=== PATIENT | male | born 1945 | race Caucasian/White ===

== ENCOUNTER 2018-02-25 10:47 | Inpatient (IN) | payer MEDICARE, OTHER ==
[~2018-02-25] VITALS: Ht 177.8 cm; Wt 60.8 kg
[2018-02-25] VITALS (21 sets, daily range): BP systolic 83–113; BP diastolic 50–67; BMI 19.3
[~2018-02-25 10:47] MED LIST: ASPIRIN81 MG PO; ATIVAN0.5 MG PO; DILAUDID2 MG PO; GLUCOPHAGE500 MG PO; HYDROCODONE-APA1 TAB PO; HYDROXYZINE HCL50 MG PO; HYTRIN5 MG; KAOPECTATE525 MG/15 PO; MELATONIN 3 MG1 TAB PO; MIRAPEX0.25 MG PO; MUCINEX600 MG PO; MYSOLINE250 MG PO; NIASPAN500 MG PO; OXYBUTYNIN CHLOR5 MG PO; PHENERGAN25 M1 PO; PRILOSEC20 MG PO; PROZAC40 MG PO; ROBAXIN-750750 MG PO; VITAMIN B-121000 MCG PO; ZANTAC150 MG PO
[2018-02-25 12:36] LABS: BASOPHILS 0.1 % (0-2); EOSINOPHILS 0 % (0-7); HEMATOCRIT 39.2 % (42.0-54.0); HEMOGLOBIN 12.9 g/dL (13.5-17.5); IMMATURE GRANULOCYTES 0.3 % (0-5); MCHC 32.9 g/dL (31.0-37.0); MCV 88.1 fL (80.0-100.0); MEAN PLATELET VOLUME 10.8 fL (7.4-10.4); MONOCYTES 9.8 % (2-11); NEUTROPHILS 83.8 % (40-80); RBC 4.45 10x6/uL (4.20-6.10); RDW 14.9 % (11.5-14.5); WBC 10.7 10x3/uL (4.8-10.8)
[2018-02-25 12:38] LABS: PLATELET COUNT 147 10x3/uL (130-400)
[2018-02-25 12:53] LABS: APPEARANCE HAZY (CLEAR); BILIRUBIN NEGATIVE (NEGATIVE); COLOR DK YELLOW (YELLOW); GLUCOSE NEGATIVE (NEGATIVE); KETONE SMALL mg/dL (NEGATIVE); NITRITE NEGATIVE (NEGATIVE); PROTEIN NEGATIVE (NEGATIVE); SPECIFIC GRAVITY 1.025 (1.005-1.020)
[2018-02-25 12:56] LABS: BACTERIA FEW /hpf (NONE SEEN); EPITHELIAL CELLS 0-5 /hpf (0-5); HYALINE CAST 0-5 /lpf (NONE SEEN); MUCUS <1+ /lpf (NONE SEEN); RED CELLS - URINE RARE /hpf (0-5); WAXY CAST RARE /lpf (NONE SEEN); WHITE CELLS - URINE 0-5 /hpf (0-5)
[2018-02-25 13:10] LABS: ALBUMIN 2.8 g/dL (3.4-5.0); ALKALINE PHOSPHATASE 82 U/L (46-116); ALT (SGPT) 24 U/L (10-68); BILIRUBIN - TOTAL 0.83 mg/dL (0.2-1.3); CALCIUM 9.3 mg/dL (8.5-10.1); CARBON DIOXIDE 24.4 mmol/L (21.0-32.0); CHLORIDE - SERUM 102 mmol/L (98-107); CREATININE - SERUM 1.7 mg/dL (0.6-1.3); POTASSIUM - SERUM 4.9 mmol/L (3.5-5.1); PROTEIN - SERUM 6.1 g/dL (6.4-8.2); SODIUM 139 mmol/L (136-145); UREA NITROGEN 48 mg/dL (7-18); eGFR NON AFRICAN AMERICAN 42 mL/min (90-120)
[2018-02-25 13:13] LABS: CALC OSMOLALITY 294 mosm/kg (275-300); GLUCOSE 177 mg/dL (74-106); TROPONIN-I < 0.017 ng/mL (0.000-0.060)
[2018-02-25] MEDS ORDERED: NORVASC5 MG PO (21:44)
[2018-02-25] MEDS ORDERED: LIPITOR80 MG PO (21:53)
[2018-02-25] MEDS ORDERED: ARICEPT10 MG PO (21:53)
[2018-02-25] MEDS ORDERED: BROVANA15 MCG/2 M INH (21:54)
[2018-02-25] MEDS ORDERED: NEURONTIN 300300 MG PO (21:54)
[2018-02-25] MEDS ORDERED: ZESTRIL10 MG PO (21:55)
[2018-02-25] MEDS ORDERED: REMERON15 MG PO (21:56)
[2018-02-25] MEDS ORDERED: K-DUR20 MEQ PO (21:56)
[2018-02-25] MEDS ORDERED: REQUIP0.5 MG PO (21:57)
[2018-02-26] VITALS (45 sets, daily range): BP systolic 85–131; BP diastolic 52–81; Ht 177.8 cm; Wt 60.8 kg
[2018-02-26 05:16] LABS: BASOPHILS 0 % (0-2); EOSINOPHILS 0 % (0-7); HEMATOCRIT 33.4 % (42.0-54.0); HEMOGLOBIN 10.6 g/dL (13.5-17.5); IMMATURE GRANULOCYTES 0.3 % (0-5); LYMPHOCYTES 4.2 % (15-50); MCHC 31.7 g/dL (31.0-37.0); MCV 88.1 fL (80.0-100.0); MEAN PLATELET VOLUME 10.3 fL (7.4-10.4); MONOCYTES 1.2 % (2-11); NEUTROPHILS 94.3 % (40-80); RBC 3.79 10x6/uL (4.20-6.10); RDW 14.8 % (11.5-14.5)
[2018-02-26 05:33] LABS: PLATELET COUNT 213 10x3/uL (130-400); WBC 6.7 10x3/uL (4.8-10.8)
[2018-02-26 05:38] LABS: ANION GAP 17.9 mmol/L (8-16); BILIRUBIN - TOTAL 0.5 mg/dL (0.2-1.3); CALCIUM 8.4 mg/dL (8.5-10.1); CARBON DIOXIDE 19.3 mmol/L (21.0-32.0); POTASSIUM - SERUM 4.2 mmol/L (3.5-5.1); PROTEIN - SERUM 5.4 g/dL (6.4-8.2)
[2018-02-26 05:44] LABS: CREATININE - SERUM 1.2 mg/dL (0.6-1.3)
[2018-02-27 04:00] VITALS: BP 117/56
[2018-02-27 04:37] LABS: BASOPHILS 0.1 % (0-2); EOSINOPHILS 0 % (0-7); HEMATOCRIT 31.6 % (42.0-54.0); HEMOGLOBIN 10.4 g/dL (13.5-17.5); IMMATURE GRANULOCYTES 0.9 % (0-5); LYMPHOCYTES 5.9 % (15-50); MCH 28.3 pg (26.0-34.0); MCHC 32.9 g/dL (31.0-37.0); MEAN PLATELET VOLUME 10.2 fL (7.4-10.4); NEUTROPHILS 87.1 % (40-80); RBC 3.68 10x6/uL (4.20-6.10); RDW 14.5 % (11.5-14.5)
[2018-02-27 04:53] LABS: MCV 85.9 fL (80.0-100.0); PLATELET COUNT 257 10x3/uL (130-400); WBC 9.4 10x3/uL (4.8-10.8)
[2018-02-27 05:04] LABS: ALBUMIN 2.3 g/dL (3.4-5.0); ALKALINE PHOSPHATASE 64 U/L (46-116); CALCIUM 8.8 mg/dL (8.5-10.1); CHLORIDE - SERUM 110 mmol/L (98-107); CREATININE - SERUM 0.9 mg/dL (0.6-1.3); GLUCOSE 167 mg/dL (74-106); MAGNESIUM - SERUM 1.8 mg/dL (1.8-2.4); PROTEIN - SERUM 5.6 g/dL (6.4-8.2); SODIUM 143 mmol/L (136-145); eGFR NON AFRICAN AMERICAN 88 mL/min (90-120)
[2018-02-27 05:07] LABS: ALT (SGPT) 27 U/L (10-68); CALC OSMOLALITY 289 mosm/kg (275-300); POTASSIUM - SERUM 3.1 mmol/L (3.5-5.1); UREA NITROGEN 16 mg/dL (7-18)
[2018-02-27 07:47] VITALS: BP 126/57
[2018-02-27 12:23] VITALS: BP 109/58
[2018-02-27] MEDS ORDERED: HUMALOG 30100 UNITS/ SC (14:19)
[2018-02-27] MEDS ORDERED: PROTONIX40 MG PO (14:19)
[2018-02-27] MEDS ORDERED: LOVENOX40 MG/0.4 SC (14:19)
[2018-02-27] MEDS ORDERED: MERREM 1 GM/NS 11 G1 IVPB (14:19)
[2018-02-27] MEDS ORDERED: SINGULAIR10 MG PO (14:19)
[2018-02-27] MEDS ORDERED: BENZONATATE200 MG PO (14:19)
[2018-02-27] MEDS ORDERED: MUCINEX600 MG PO (14:19)
[2018-02-27] MEDS ORDERED: ALBUTEROL2.5 MG/3 M UPD (14:19)
[2018-02-27] MEDS ORDERED: SOLU-MEDRO40 MG/1 M1 IV (14:19)
[2018-02-27] MEDS ORDERED: PULMICORT0.5 MG/21 UPD (14:19)
[2018-02-27] MEDS ORDERED: FLORAJEN3 CAPS460 MG PO (14:19)
[2018-02-27] MEDS ORDERED: VANCOMYCIN 1 GM/1 G1 IV (14:19)
== END 2018-02-27 16:45 | DRG 871 ==
LOC: D.ER 10:47 → D.ICU 13:49 → D.EDHOLD 13:49 → D.ICU 18:21 → D.MS 02-26 16:14
PROVIDERS: Family Medicine; Nurse Practitioner Family
DX: A41.9 Sepsis, unspecified organism (principal); J18.9 Pneumonia, unspecified organism; J69.0 Pneumonitis due to inhalation of food and vomit; N17.9 Acute kidney failure, unspecified; J44.0 Chronic obstructive pulmonary disease with (acute) lower respiratory infection; J44.1 Chronic obstructive pulmonary disease with (acute) exacerbation; E78.5 Hyperlipidemia, unspecified; I10 Essential (primary) hypertension; G20 Parkinson's disease; G47.411 Narcolepsy with cataplexy; E11.40 Type 2 diabetes mellitus with diabetic neuropathy, unspecified; G25.0 Essential tremor; G89.29 Other chronic pain; Y95 Nosocomial condition; E86.0 Dehydration; F41.8 Other specified anxiety disorders

== ENCOUNTER 2018-12-10 13:38 | Inpatient (IN) | payer MEDICARE, OTHER ==
[~2018-12-10] VITALS: Ht 177.8 cm; Wt 67.1 kg
[~2018-12-10 13:38] MED LIST changes: +ALBUTEROL2.5 MG/3 M UPD; +ARICEPT10 MG PO; +BENZONATATE200 MG PO; +BROVANA15 MCG/2 M INH; +FLORAJEN3 CAPS460 MG PO; +HUMALOG 30100 UNITS/ SC; +K-DUR20 MEQ PO; +LIPITOR80 MG PO; +LOVENOX40 MG/0.4 SC; +MERREM 1 GM/NS 11 G1 IVPB; +NEURONTIN 300300 MG PO; +NORVASC5 MG PO; +PROTONIX40 MG PO; +PULMICORT0.5 MG/21 UPD; +REMERON15 MG PO; +REQUIP0.5 MG PO; +SINGULAIR10 MG PO; +SOLU-MEDRO40 MG/1 M1 IV; +VANCOMYCIN 1 GM/1 G1 IV; +ZESTRIL10 MG PO
[2018-12-10 13:43] VITALS: BP 106/42
[2018-12-10 15:24] LABS: BASOPHILS 0.4 % (0-2); EOSINOPHILS 1.8 % (0-7); HEMATOCRIT 36.3 % (42.0-54.0); HEMOGLOBIN 11.6 g/dL (13.5-17.5); IMMATURE GRANULOCYTES 0.1 % (0-5); LYMPHOCYTES 20.2 % (15-50); MCH 28.3 pg (26.0-34.0); MCV 88.5 fL (80.0-100.0); MEAN PLATELET VOLUME 11.1 fL (7.4-10.4); MONOCYTES 12.1 % (2-11); NEUTROPHILS 65.4 % (40-80); RDW 14.3 % (11.5-14.5); WBC 6.7 10x3/uL (4.8-10.8)
[2018-12-10 15:28] LABS: PLATELET COUNT 175 10x3/uL (130-400)
[2018-12-10 15:37] LABS: ANION GAP 16.4 mmol/L (8-16); BILIRUBIN - TOTAL 0.27 mg/dL (0.2-1.3); CALCIUM 8.5 mg/dL (8.5-10.1); CARBON DIOXIDE 22.1 mmol/L (21.0-32.0); CREATININE - SERUM 2.2 mg/dL (0.6-1.3); POTASSIUM - SERUM 4.5 mmol/L (3.5-5.1); PROTEIN - SERUM 6.7 g/dL (6.4-8.2)
--- NOTE | 2018-12-10 16:15 | NUR ---
TRAUMA BAND [id number]
--- NOTE | 2018-12-10 17:06 | NUR ---
PT OBSERVED RESTING IN SEMI FOWLERS. FIRST ORDERED LITER OF NS CONTINUED. SECOND LITER WILL BE STARTED ONCE FIRST ONE IS FINISHED. ORDERED ABX STARTED. RESPIRATIONS EVEN AND UNLABORED. WILL CONTINUE TO MONITOR.
[2018-12-10] MEDS ORDERED: BROVANA15 MCG/2 M INH ×3 (17:29→17:32)
[2018-12-10] MEDS ORDERED: MIRALAX17 GM PO ×2 (17:30→17:31)
[2018-12-10 17:45] VITALS: BP 105/61
[2018-12-10 18:26] VITALS: BP 111/60
--- NOTE | 2018-12-10 18:40 | NUR ---
PT WAS GIVEN A CARDIAC MEAL TRAY. PT AWAITING ROOM ASSIGNMENT. LEVAQUIN IVPB FINISHED. IV NS BOLUS STILL INFUSING. PT RESTING. RESPIRATIONS EVEN AND UNLABORED.
[2018-12-10 18:48] VITALS: BP 109/61
[2018-12-11 00:30] VITALS: BP 107/49
[2018-12-11] MEDS ORDERED: PROTONIX20 MG PO (00:50)
[2018-12-11] MEDS ORDERED: K-DUR20 MEQ PO (00:50)
[2018-12-11] MEDS ORDERED: MIRAPEX0.25 MG PO (00:51)
[2018-12-11] MEDS ORDERED: OXYBUTYNIN CHLOR5 MG PO (00:52)
[2018-12-11] MEDS ORDERED: NEURONTIN 300300 MG PO (00:53)
[2018-12-11] MEDS ORDERED: PRINIVIL20 MG PO (00:54)
[2018-12-11] MEDS ORDERED: MIRALAX17 GM PO (00:56)
[2018-12-11] MEDS ORDERED: VITAMIN B-12500 MC1 PO (00:56)
[2018-12-11] MEDS ORDERED: PROZAC20 MG PO (00:57)
[2018-12-11] MEDS ORDERED: PULMICORT0.5 MG/21 INH (00:58)
[2018-12-11] MEDS ORDERED: REMERON15 MG PO (00:58)
[2018-12-11] MEDS ORDERED: REQUIP0.5 MG PO (00:59)
[2018-12-11 01:07] VITALS: BP 117/52; BMI 21.2
[2018-12-11 09:03] VITALS: BP 120/60
[2018-12-11 11:47] VITALS: BP 111/59
--- NOTE | 2018-12-11 12:15 | MORECARE ---
CASE MANAGEMENT DISCHARGE SUMMARY PATIENT: ESAU MAYS UNIT: [id number] ADM DATE: 12/10/18 AGE: 73 : 45 SEX: M ROOM/BED: D.1205 AUTHOR: MARI MENSAH PHYSICIAN: REFERRING PHYSICIAN: MILO STOVALL MD DATE OF SERVICE: 12/11/18 Discharge Plan Patient Name: ESAU MAYS Facility: [facility]:[place] : 1945 Planned Disposition: Anticipated Discharge Date: Discharge Date: Expected LOS: Initial Reviewer: [email or web address] Initial Review Date: 12/11/2018 Generated: 12/11/18 1:14 pm DCPIA - Discharge Planning Initial Assessment Updated by [email or web address]: Aleyda Calles on 12/11/18 12:09 pm * Facility Name [facility] * Equipment Wheelchair * Additional services required to return to the preadmission environment? No * Can the patient safely return to the preadmission environment? Yes Patient Name: ESAU MAYS Page [id number] at 1215 All edits/amendments must be made on the electronic document DICTATION DATE: 12/11/181213 CASH REGISTER REPAIRER: MAYCO 12/11/181213 RPT#: [id number] DC DATE: STATUS: ADM IN [facility] [address] [place] [address] END OF REPORT
[2018-12-11 12:31] LABS: % SATURATION 20 % (15-55); IRON 44 ug/dl (35-150); TOTAL IRON BIND CAPACITY 220 ug/dl (260-445); UNSAT IRON BIND CAPACITY 176 ug/dl (150-375)
[2018-12-11 13:49] VITALS: Ht 177.8 cm; Wt 67.1 kg
[2018-12-11 20:00] VITALS: BP 113/54
--- NOTE | 2018-12-11 21:00 | NUR ---
THE PATIENT WAS WATCHING TELEVISION WHEN STAFF ENTERED HIS AREA. BED IN THE LOW POSITION WITH SIDERAILS X2 AND CALL LIGHT WITHIN REACH. THE PATIENT DEMONSTRATES USE OF A CALL LIGHT. THE PATIENT STATES NO QUESTIONS OR CONCERNS AT THIS TIME.
[2018-12-12] VITALS: BP 114/70
--- NOTE | 2018-12-12 02:17 | NUR ---
LINEN CHANGE PROVIDED. THE PATIENT HAS NO QUESTIONS OR CONCERNS AT THIS TIME.
[2018-12-12 04:00] VITALS: BP 127/64
[2018-12-12 06:35] LABS: BASOPHILS 0.3 % (0-2); EOSINOPHILS 3.8 % (0-7); HEMATOCRIT 31.6 % (42.0-54.0); HEMOGLOBIN 10.2 g/dL (13.5-17.5); LYMPHOCYTES 32.6 % (15-50); MCH 27.9 pg (26.0-34.0); MCHC 32.3 g/dL (31.0-37.0); MEAN PLATELET VOLUME 10.4 fL (7.4-10.4); NEUTROPHILS 48.3 % (40-80); PLATELET COUNT 180 10x3/uL (130-400); RBC 3.66 10x6/uL (4.20-6.10)
[2018-12-12 06:37] LABS: MCV 86.3 fL (80.0-100.0); WBC 3.4 10x3/uL (4.8-10.8)
[2018-12-12 06:50] LABS: ANION GAP 16.5 mmol/L (8-16); CARBON DIOXIDE 20.6 mmol/L (21.0-32.0); CREATININE - SERUM 1.3 mg/dL (0.6-1.3); POTASSIUM - SERUM 4.1 mmol/L (3.5-5.1)
--- NOTE | 2018-12-12 08:00 | NUR ---
ASSESSMENT COMPLETE. IV TO L AC PATENT. RIGHT SIDED WEAKNESS. INCONT OF BOWEL/BLADDER. DENIES ANY NEEDS AT THIS TIME.
[2018-12-12 08:16] LABS: FOLATE (FOLIC ACID) - SERUM 4.6 ng/mL (>3.0)
[2018-12-12 08:38] VITALS: BP 122/70
[2018-12-12] MEDS ORDERED: LEVAQUIN750 MG PO (09:05)
[2018-12-12] MEDS ORDERED: LISINOPRIL10 MG PO (09:05)
--- NOTE | 2018-12-12 10:36 | MORECARE ---
CASE MANAGEMENT DISCHARGE SUMMARY PATIENT: ESAU AMYS UNIT: [id number] ADM DATE: 12/10/18 AGE: 73 : 45 SEX: M ROOM/BED: D.1205 AUTHOR: MARI MENSAH PHYSICIAN: REFERRING PHYSICIAN: MILO STOVALL MD DATE OF SERVICE: 12/12/18 Discharge Plan Patient Name: ESAU MAYS Facility: [facility] : 1945 Planned Disposition: Anticipated Discharge Date: Discharge Date: Expected LOS: Initial Reviewer: [email or web address] Initial Review Date: 12/11/2018 Generated: 12/12/18 11:36 am Comments DCP- Discharge Planning Updated by [email or web address]: Polly Gottlieb on 12/12/18 9:[address] DISCHARGE PLAN: Return to the [facility] in a medicaid bed. Patient to return to the [facility] today either by ME Van or by EMS. CM spoke to Falguni @ [facility], [phone], who stated the patient would be returning in Medicaid bed. Falguni stated the van will transport the patient between 11:30 - Noon today. Falguni requested that the dc instructions and the dc medication list be faxed to [phone] and that nurse report be called to Lenin @ [phone]. CM spoke to [facility] 3 regarding this information. CM will continue to follow and will assist as needed with dc plan. Patient feels discharge is a safe discharge plan. IMM signed at admission on 12/10/18. Polly Gottlieb RN, [facility] DCPIA - Discharge Planning Initial Assessment Updated by [email or web address]: Aleyda Calles on 12/11/18 12:09 pm * Facility Name [facility] * Equipment Wheelchair * Additional services required to return to the preadmission environment? No * Can the patient safely return to the preadmission environment? Yes Last DP export: 12/11/18 11:14 am Patient Name: ESAU MAYS Page [id number] at 1036 All edits/amendments must be made on the electronic document DICTATION DATE: 12/12/18 1036 SWIMMING COACH: MAYCO 12/12/18 103 RPT#: [id number] DC DATE: STATUS: ADM IN [facility] [address] [place] [address] END OF REPORT
--- NOTE | 2018-12-12 11:00 | NUR ---
REPORT CALLED TO CARLTON AT THE [facility]. MEDICATION LIST FAXED TO [facility] FOR LEVAQUIN AND LISINOPRIL. IV REMOVED. CATHETER TIP INTACT.
--- NOTE | 2018-12-12 11:48 | NUR ---
DC'D TO THE [facility] WITH LONG TERM STAFF VIA .
--- NOTE | 2018-12-14 09:01 | MORECARE ---
CASE MANAGEMENT DISCHARGE SUMMARY PATIENT: ESAU MAYS UNIT: [id number] ADM DATE: 12/10/18 AGE: 73 : 45 SEX: M ROOM/BED: D.1205 AUTHOR: MARI MENSAH PHYSICIAN: REFERRING PHYSICIAN: MILO STOVALL MD DATE OF SERVICE: 12/14/18 Discharge Plan Patient Name: ESAU MAYS Facility: [facility] : 1945 Planned Disposition: Anticipated Discharge Date: Discharge Date: 12/12/2018 Expected LOS: Initial Reviewer: [email or web address] Initial Review Date: 12/11/2018 Generated: 12/14/18 10:01 am Comments DCP- Discharge Planning Updated by [email or web address]: Polly Gottlieb on 12/12/18 9:[address] DISCHARGE PLAN: Return to the [facility] in a medicaid bed. Patient to return to the [facility] today either by [place] Van or by EMS. CM spoke to Falguni @ [facility], [phone], who stated the patient would be returning in Medicaid bed. Falguni stated the van will transport the patient between 11:30 - Noon today. Falguni requested that the dc instructions and the dc medication list be faxed to [phone] and that nurse report be called to Lenin @ [phone]. CM spoke to Dary [facility] 3 regarding this information. CM will continue to follow and will assist as needed with dc plan. Patient feels discharge is a safe discharge plan. IMM signed at admission on 12/10/18. Polly Gottlieb RN, [facility] DCPIA - Discharge Planning Initial Assessment Updated by [email or web address]: Aleyda Calles on 12/11/18 12:09 pm * Facility Name [facility] * Equipment Wheelchair * Additional services required to return to the preadmission environment? No * Can the patient safely return to the preadmission environment? Yes Last DP export: 12/12/18 9:36 am Patient Name: ESAU MAYS Page [id number] at 0901 All edits/amendments must be made on the electronic document DICTATION DATE: 12/14/18900 GREEN COFFEE BLENDER: MAYCO 12/14/18900 RPT#: [id number] DC DATE:12/12/18 STATUS: DIS IN [facility] [address] [facility] [address] END OF REPORT
== END 2018-12-12 11:50 | DRG 871 ==
LOC: D.ER 13:38 → D.M3 18:34
PROVIDERS: Emergency Medicine; ADMIT Internal Medicine Nephrology
DX: A41.9 Sepsis, unspecified organism (principal); J18.1 Lobar pneumonia, unspecified organism; J69.0 Pneumonitis due to inhalation of food and vomit; N17.9 Acute kidney failure, unspecified; I69.351 Hemiplegia and hemiparesis following cerebral infarction affecting right dominant side; D50.9 Iron deficiency anemia, unspecified; I10 Essential (primary) hypertension; E78.5 Hyperlipidemia, unspecified; E11.9 Type 2 diabetes mellitus without complications; K21.9 Gastro-esophageal reflux disease without esophagitis; G25.81 Restless legs syndrome; F03.90 Unspecified dementia, unspecified severity, without behavioral disturbance, psychotic disturbance, mood disturbance, and anxiety; K59.09 Other constipation